=== PATIENT | female | born 2000 | race Two or more races ===

== ENCOUNTER 2023-10-07 21:03 | Emergency (ER) | payer MEDICAID ==
[~2023-10-07] VITALS: Ht 162.6 cm; Wt 84.0 kg
[2023-10-07 22:08] VITALS: BP 123/88; PULSE 96; RESP 18; TEMP 98; O2SAT 98
[2023-10-08] MEDS ORDERED: IBUPROFEN 600MG TABLET PO ONE (00:15)
[2023-10-08] MEDS ORDERED: NAPR220C61 MT (01:35)
== END 2023-10-08 02:19 | disposition home or self-care (01) ==
LOC: ER 21:03
DX: M25.511 Pain in right shoulder (principal); G89.11 Acute pain due to trauma; V49.49XA Driver injured in collision with other motor vehicles in traffic accident, initial encounter; Y93.89 Activity, other specified; Y92.89 Other specified places as the place of occurrence of the external cause; Y99.8 Other external cause status
CPT/HCPCS: 73030; 81025; 99283